=== PATIENT | female | born 1990 | race Caucasian/White ===

== ENCOUNTER 2016-06-23 13:03 | Emergency (ER) | payer OTHER ==
[~2016-06-23] VITALS: Ht 162.6 cm; Wt 50.0 kg
[2016-06-23 13:39] VITALS: BP 104/73; PULSE 69; RESP 16; O2SAT 100
[2016-06-23] MEDS ORDERED: PNV1TABL81 PO (17:31)
[2016-06-23 18:05] LABS: Mean Corpuscular Hemoglobin 29.8 pg (27.0-35.0)
--- NOTE | 2016-06-23 18:08 | ED.REPORT ---
HPI-Preg Under 20 Weeks Date of Service June 23, 2016 ED Provider: Doc,Ed MD History of Present Illness: 25yo female , reports she is 6 weeks , had small amount of vaginal bleeding this afternoon, now resolved. Not precipitated by coitus. She has been seen by her OB at [facility] last week. US did not demonstrate any heat beat at that time. Nursing Notes Stated Complaint: BLEEDING,10WKS Chief Complaint: Female Abdominal Pain Nursing Notes Reviewed: Yes Allergies: Coded Allergies: No Known Allergies (Unverified , 06/23/16) Scheduled Pnv No.122/Iron/Folic Acid ( Multi Tablet) 27 Mg Iron-800 Mcg Tablet 1 TABLET PO DAILY General Time Seen by Provider: 17:00 Chief Complaint Vaginal bleeding Context: : Known 1st trim Hx Obtained From: Patient Onset Occurred: 5 - 8 hours ago Progression Since Onset: Rapidly improving Severity: Current: No pain currently Severity: Maximum: No pain Recent Healthcare: Recent doctor visit Similar Sx Previous: No Risk-Preg Under 20 Weeks Ectopic Risk Stratification RF Statements: No risk factors Past Medical History Past Medical History Denies Past Surgical History Denies Smoking History Never Smoker Social History Alcohol Use: Denies alcohol use Ambulatory Status Independent Review of Systems Constitutional: Denies: Chills, Fever Respiratory: Denies: Shortness of breath Cardiovascular: Denies: Chest pain GI: Denies: Abdominal pain Female: Reports: , Vaginal bleeding - abnl, Denies: Vaginal discharge Complete sys rev & neg: except as marked. Physical Exam Initial Vital Signs Vital Signs (First) Date Time Temp Pulse Resp B/P Pulse Ox O2 Delivery O2 Flow Rate FiO2 06/23/16 13:39 36.5 69 16 104/73 100 Initial VS: Vital signs normal General/Constitutional: Awake, Alert, No acute distress, Not toxic appearing Abdomen: Soft, Non-tender, No guarding, No rebound, BS normoactive Respiratory / Chest: Breath sounds NL, Breath sounds = bilat, No respiratory distress Cardiovascular: Heart rate NL, Regular rhythm, Heart sounds NL Interpretation & Diagnostics Interpretation & Diagnostics: BHCG = 9100 Lab Results Interpretation Result Diagram: 06/23/16 1800 06/23/16 1800 Test 06/23/16 17:44 06/23/16 18:00 Hold Urine Received (Received) White Blood Count 10.4th/mm3 (3.8-10.1) Red Blood Count 4.00mil/mm3 (3.90-5.20) Hemoglobin 11.9g/dL (12.0-15.6) Hematocrit 35.2% (35.0-46.0) Mean Corpuscular Volume 88.0fL (81-100) Mean Corpuscular Hemoglobin 29.8pg (27.0-35.0) Mean Corpuscular Hemoglobin Concent 33.8% (32.0-37.0) Red Cell Distribution Width 12.3% (12.3-15.4) Platelet Count 231bil/L (150-400) Sodium Level 140mEq/L (134-144) Potassium Level 3.6mEq/L (3.5-5.2) Chloride Level 102mEq/L (97-108) Carbon Dioxide Level 23mmol/L (18-29) Blood Urea Nitrogen 11mg/dL (6-20) Creatinine 0.54mg/dL (0.57-1.00) Estimat Glomerular Filtration Rate 197mL/min (>59) Glucose Level 93mg/dL (60-99) Calcium Level 9.7mg/dL (8.5-10.1) Total Bilirubin 0.3mg/dL (0.0-1.2) Aspartate Amino Transf (AST/SGOT) 13U/L (0-50) Alanine Aminotransferase (ALT/SGPT) 10U/L (0-32) Alkaline Phosphatase 36U/L (25-150) Total Protein 7.6g/dL (6.4-8.4) Albumin 4.7g/dL (3.4-5.0) HCG Beta Subunit 9114mIU/mL US Focused OB PROCEDURE: US OB<14 WKS INDICATIONS: threatened miscarriage OUTSIDE/PRIOR DATING DATA: Last menstrual period (LMP): Unknown. LMP-based estimated date of delivery (JAMAR): Unknown. First dating scan (date and location): 06/23/16. Estimated date of delivery (JAMAR) from first dating scan: 02/17/17. TECHNIQUE: Real-time scanning was performed of the fetus and maternal pelvic organs, with image documentation. Endovaginal scanning was also performed to better visualize the fetus and maternal ovaries. COMPARISON: None. FINDINGS: Embryo: Intrauterine gestational sac is identified measuring 6 mm corresponding to 5 weeks 2 days. There is no visualization of crown-rump length or heart tones. Comments: A normal yolk sac is noted. No perigestational bleeds. Measurement variability in dating: +/- 4 weeks by LMP, +/- 7 days by mean sac diameter (use before 6 weeks gestation if crown-rump length not able to be measured), +/- 5 days by crown-rump length (6-12 weeks gestation). Maternal organs: Ovaries are unremarkable. Limited images through the kidneys demonstrate no hydronephrosis. IMPRESSION: 1. Intrauterine gestational sac as above, corresponding to 5 weeks 2 days. Recommend correlation with beta hCG levels and followup imaging to document viability. Dictated by: Janny Small M.D. on 06/23/2016 at 20:04 Approved by: Janny Small M.D. on 06/23/2016 at 20:05 Re-Eval/Medical Decision Med Decision/Clinical Course Pt has a gestational sac without identifyable heartbeat. She needs recheck for [facility] #2 on 06/25 and possible repeat US in near future. Counseled Regarding: Diagnosis, Lab results, Need for follow-up, When/why to return to ED Discharge & Departure Primary Impression: Threatened miscarriage in early Disposition: Home Patient Instructions: Planning for (GEN) Additional Instructions: Rest, no intercourse until ok'd by OB. Follow up with OB doctor on 06/25. Return to ER if anything worsens. Referrals: [facility] Resident [facility] EDSupervising Provider for APC: Donal Conklin Christopher R PAC June 23, 2016 18:08
--- NOTE | 2016-06-23 20:06 | DRSVH ---
PROCEDURE: US OB<14 WKS INDICATIONS: threatened miscarriage OUTSIDE/PRIOR DATING DATA: Last menstrual period (LMP): Unknown. LMP-based estimated date of delivery (JAMAR): Unknown. First dating scan (date and location): 06/23/16. Estimated date of delivery (JAMAR) from first dating scan: 02/17/17. TECHNIQUE: Real-time scanning was performed of the fetus and maternal pelvic organs, with image documentation. Endovaginal scanning was also performed to better visualize the fetus and maternal ovaries. COMPARISON: None. FINDINGS: Embryo: Intrauterine gestational sac is identified measuring 6 mm corresponding to 5 weeks 2 days. T here is no visualization of crown-rump length or heart tones. Comments: A normal yolk sac is noted. No perigestational bleeds. Measurement variability in dating: +/- 4 weeks by LMP, +/- 7 days by mean sac diameter (use before 6 weeks gestation if crown-rump length not able to be measured), +/- 5 days by crown-rump length (6-12 weeks gestation). Maternal organs: Ovaries are unremarkable. Limited images through the kidneys demonstrate no hydron ephrosis. IMPRESSION: 1. Intrauterine gestational sac as above, corresponding to 5 weeks 2 days. Recommend correlation with beta hCG levels and followup imaging to document viability. Dictated by: Janny Small M.D. on 06/23/2016 at 20:04 Approved by: Janny Small M.D. on 06/23/2016 at 20:05
[2016-06-24 02:33] LABS: APPEARANCE,URINE CLEAR (CLEAR,HAZY); COLOR,URINE STRAW (YELLOW); OCCULT BLOOD,URINE NEGATIVE (NEGATIVE); PH,URINE 7.5 (5.0-8.0); UROBILINOGEN,URINE NORMAL (NORMAL)
== END 2016-06-23 20:53 | disposition home or self-care (01) ==
LOC: SED 13:03
DX: O20.0 Threatened abortion (principal); Z3A.01 Less than 8 weeks gestation of pregnancy